=== PATIENT | male | born 2000 | race Native Hawaiian/Other Pacific Islander ===

== ENCOUNTER 2022-10-11 12:00 | Emergency (ER) | payer SELFPAY ==
[~2022-10-11] VITALS: Ht 170.2 cm; Wt 79.5 kg
[2022-10-11 12:07] VITALS: TEMP 98.2
[2022-10-11 14:39] LABS: BASO % 0.5 % (0.0-2.0); EOS # 0.3 K/mm3 (0.0-0.7); EOS % 2.9 % (0.0-4.0); GRAN # 6.5 K/mm3 (1.4-6.5); GRAN % 73.9 % (42.2-75.2); HEMATOCRIT 47.2 % (42.0-52.0); HEMOGLOBIN 15.3 g/dl (13.5-18.0); LYMPH # 1.2 K/mm3 (1.2-3.4); MEAN CELL VOLUME 90 fl (80.0-100.0); MEAN CORPUSCULAR HEMOGLOBIN 29 pg (27-31); MEAN CORPUSCULAR HGB CONC 32 g/dl (33.0-37.0); MEAN PLATELET VOLUME 8.6 fl (7.4-10.4); MONO # 0.7 K/mm3 (0.1-0.6); MONO % 8.4 % (1.7-9.3); PLATELET COUNT 291 K/mm3 (130-400); RED BLOOD COUNT 5.26 M/mm3 (4.20-5.60); REDCELL DISTRIBUTION WIDTH-CV 12.7 % (11.5-14.5)
[2022-10-11 14:55] LABS: CALCIUM 9.1 mg/dL (8.4-10.2); CREATININE, serum 0.99 mg/dL (0.72-1.25); POTASSIUM 4.3 mmol/L (3.5-4.5)
[2022-10-11 15:57] VITALS: BP 110/66; PULSE 89
[2022-10-13 17:14] LABS: TB GOLD INTERPRETATION Negative (Negative)
[2022-10-27] MEDS ORDERED: ANUSOL-HC SUPPO25 MG RC (18:18)
== END 2022-10-11 15:57 | disposition home or self-care (01) ==
LOC: COL.ER 12:00
PROVIDERS: Emergency Medicine
DX: J20.9 Acute bronchitis, unspecified (principal); J98.8 Other specified respiratory disorders; R04.2 Hemoptysis; F17.200 Nicotine dependence, unspecified, uncomplicated; Z86.15 Personal history of latent tuberculosis infection; Z28.310 Unvaccinated for COVID-19

== ENCOUNTER 2023-12-19 12:43 | Emergency (ER) | payer SELFPAY ==
[~2023-12-19] VITALS: Ht 167.6 cm; Wt 72.7 kg
[~2023-12-19 12:43] MED LIST: ANUSOL-HC SUPPO25 MG RC
[2023-12-19 13:08] VITALS: TEMP 98.2
[2023-12-19] MEDS ORDERED: Ondansetron 4 MG/2 ML VIAL IV ONE (13:30)
[2023-12-19] MEDS ORDERED: NS 1,000 ML IV ONE (13:30)
[2023-12-19 14:06] LABS: BASO # 0.1 K/mm3 (0.0-0.2); BASO % 0.9 % (0.0-2.0); EOS # 0.1 K/mm3 (0.0-0.7); EOS % 0.8 % (0.0-4.0); GRAN # 6.5 K/mm3 (1.4-6.5); GRAN % 71.4 % (42.2-75.2); HEMATOCRIT 50.8 % (42.0-52.0); HEMOGLOBIN 17.2 g/dl (13.5-18.0); LYMPH # 1.8 K/mm3 (1.2-3.4); LYMPH % 19.7 % (20.0-51.0); MEAN CELL VOLUME 91 fl (80.0-100.0); MEAN CORPUSCULAR HEMOGLOBIN 31 pg (27-31); MEAN CORPUSCULAR HGB CONC 34 g/dl (33.0-37.0); MEAN PLATELET VOLUME 8.8 fl (7.4-10.4); MONO # 0.6 K/mm3 (0.1-0.6); MONO % 6.9 % (1.7-9.3); PLATELET COUNT 288 K/mm3 (130-400); RED BLOOD COUNT 5.61 M/mm3 (4.20-5.60); REDCELL DISTRIBUTION WIDTH-CV 12.8 % (11.5-14.5)
[2023-12-19 14:34] LABS: ALBUMIN 4.4 gm/dL (3.5-5.0); BILIRUBIN,TOTAL 0.4 mg/dL (0.2-1.2); CALCIUM 9.6 mg/dL (8.4-10.2); CREATININE, serum 0.91 mg/dL (0.72-1.25); POTASSIUM 4.2 mmol/L (3.5-4.5); TOTAL PROTEIN 7.5 gm/dL (6.2-8.1)
[2023-12-19] MEDS ORDERED: ZOFRAN ODT4 MG PO (14:51)
[2023-12-19 15:15] VITALS: BP 121/74; PULSE 70
== END 2023-12-19 15:15 | disposition home or self-care (01) ==
LOC: COL.ER 12:43
PROVIDERS: Physician Assistant
DX: R11.2 Nausea with vomiting, unspecified (principal)
CPT/HCPCS: J2405; J7030